=== PATIENT | female | born 1990 | race Hispanic/Latino ===

== ENCOUNTER → 2017-07-26 | Outpatient (REF) | payer OTHER ==
[2017-07-26 14:52] LABS: BASO % 0.2 % (0.0-1.0); EOS # 0.1 10^3/uL (0.0-0.50); EOS % 1.4 % (0.0-3.0); HEMATOCRIT 38.9 % (36.0-47.0); HEMOGLOBIN 12.9 g/dl (12.0-16.0); IMMATURE GRANULOCYTE % 0.4 % (0-3.0); LYMPH # 2.2 10^3/uL (1.5-6.5); LYMPH % 39.4 % (24.0-44.0); MEAN CORPUSCULAR HEMOGLOBIN 26.8 pg (27.0-33.0); MEAN CORPUSCULAR HGB CONC 33.2 g/dl (32.0-36.5); MEAN CORPUSCULAR VOLUME 80.7 fl (80.0-96.0); MONO # 0.3 10^3/uL (0.0-0.8); MONO % 5.1 % (0.0-5.0); NEUTROPHILS % 53.5 % (36.0-66.0); PLATELET COUNT, AUTOMATED 292 10^3/uL (150-450); RED BLOOD COUNT 4.82 10^6/uL (4.00-5.40); WHITE BLOOD COUNT 5.6 10^3/uL (4.0-10.0)
[2017-07-26 15:15] LABS: FOLATE 16.5 NG/ML; VITAMIN B12 LEVEL 553 PG/ML
== END ==
LOC: M SFHCLERA 10:12
DX: R41.840 Attention and concentration deficit (principal); R53.83 Other fatigue
CPT/HCPCS: 82746

== ENCOUNTER → 2019-04-19 | Outpatient (REF) | payer OTHER | LOC: M PLALAB 09:32 | PROVIDERS: ATTEND Nurse Practitioner Women's Health | DX: Z12.4 Encounter for screening for malignant neoplasm of cervix (principal); Z15.01 Genetic susceptibility to malignant neoplasm of breast; Z15.02 Genetic susceptibility to malignant neoplasm of ovary | CPT/HCPCS: 36415; G0123; G0463 ==

== ENCOUNTER → 2019-04-19 | Outpatient (CLI) | payer OTHER | LOC: M PLALAB 10:02 | PROVIDERS: ATTEND Nurse Practitioner Women's Health | DX: Z15.01 Genetic susceptibility to malignant neoplasm of breast (principal); Z15.02 Genetic susceptibility to malignant neoplasm of ovary ==

== ENCOUNTER → 2019-05-21 | Outpatient (REF) | payer OTHER | LOC: M PLALAB 14:36 | PROVIDERS: ATTEND Nurse Practitioner Women's Health | DX: R87.612 Low grade squamous intraepithelial lesion on cytologic smear of cervix (LGSIL) (principal) ==

== ENCOUNTER → 2019-07-24 | Outpatient (REF) | payer OTHER | LOC: M SFHCLERA 12:02 | PROVIDERS: ATTEND Nurse Practitioner Family | DX: Z86.39 Personal history of other endocrine, nutritional and metabolic disease (principal) | CPT/HCPCS: 82306; G0463 ==